=== PATIENT | male | born 1970 | race American Indian/Alaskan Native ===

== ENCOUNTER 2020-04-08 23:16 | Emergency (ER) | payer SELFPAY ==
[2020-04-08 23:31] VITALS: BP 132/87
--- NOTE | 2020-04-08 23:38 | Emergency Department Report ---
ED General Adult HPI - General Chief complaint: Pain General Stated complaint: ANAL PAIN/CONSTIPATION Source: patient Mode of arrival: Ambulatory Limitations: No Limitations - History of Present Illness Initial comments: Patient is a 49-year-old -[place] male with a history of SLE, bipolar disorder, anxiety and depression and PTSD who presents to the ED with complaint of acute onset persistent rectal pain due to persistent rectal hemorrhoids for the last 2 weeks. Patient states that the symptoms have worsened especially in the last 3 days with bowel movement. Patient states that he also noticed that the bowel was consistently heard and that he noticed some blood mixed with stool with worsening pain in his rectum. Patient denies fever, chills, abdominal pain, nausea, vomiting, chest pain, shortness of breath, cough, change in vision, testicular pain, hematuria, dysuria, dizziness or syncope. MD Complaint: Rectal pain, hemorrhoids -: Sudden, week(s) (2) Location: buttocks Radiation: non-radiation Severity scale (0 -10): 5 Quality: burning, aching, sharp Consistency: intermittent Improves with: none Worsens with: movement, other (bowel movement) Associated Symptoms: denies other symptoms. denies: confusion, chest pain, cough, diaphoresis, fever/chills, headaches, loss of appetite, malaise, nausea/vomiting, rash, seizure, shortness of breath, syncope, weakness, other Treatments Prior to Arrival: none - Related Data Previous Rx's Medication Instructions Recorded Last Taken Type Dibucaine 1% [Nupercainal] 1 applicatio LA TID PRN #1 tube 04/08/20 Unknown Rx Hydrocortisone [Anusol-Hc 2.5% TOP 30 gm RC Q8H PRN #1 cream..g. 04/08/20 Unknown Rx CREAM] Ibuprofen [Motrin] 600 mg PO Q8H PRN #24 tablet 04/08/20 Unknown Rx Allergies Allergy/AdvReac Type Severity Reaction Status Date / Time No Known Allergies Allergy Unverified 04/08/20 23:32 ED Review of Systems ROS: Stated complaint: ANAL PAIN/CONSTIPATION Other details as noted in HPI Constitutional: denies: chills, fever Eyes: denies: eye pain, eye discharge, vision change ENT: denies: ear pain, throat pain Respiratory: denies: cough, shortness of breath, wheezing Cardiovascular: denies: chest pain, palpitations Endocrine: no symptoms reported Gastrointestinal: other (rectal pain due to hemorrhoids). denies: abdominal pain, nausea, diarrhea Genitourinary: denies: urgency, dysuria Musculoskeletal: denies: back pain, joint swelling, arthralgia Skin: denies: rash, lesions Neurological: denies: headache, weakness, paresthesias Psychiatric: denies: anxiety, depression Hematological/Lymphatic: denies: easy bleeding, easy bruising ED Past Medical Hx - Past Medical History Previous Medical History?: Yes Hx Psychiatric Treatment: Yes (Anxiety, Bipolar, PTSD) Additional medical history: lupus - Social History Smoking Status: Current Every Day Smoker Substance Use Type: None - Medications Home Medications: Home Medications Medication Instructions Recorded Confirmed Last Taken Type Dibucaine 1% [Nupercainal] 1 applicatio LA TID PRN #1 tube 04/08/20 Unknown Rx Hydrocortisone [Anusol-Hc 2.5% TOP 30 gm RC Q8H PRN #1 cream..g. 04/08/20 Unknown Rx CREAM] Ibuprofen [Motrin] 600 mg PO Q8H PRN #24 tablet 04/08/20 Unknown Rx ED Physical Exam - General Limitations: No Limitations General appearance: alert, in no apparent distress - Head Head exam: Present: atraumatic, normocephalic, normal inspection - Eye Eye exam: Present: normal appearance, PERRL, EOMI Pupils: Present: normal accommodation - ENT ENT exam: Present: normal exam, normal orophraynx, mucous membranes moist, TM's normal bilaterally, normal external ear exam - Neck Neck exam: Present: normal inspection, full ROM - Respiratory Respiratory exam: Present: normal lung sounds bilaterally. Absent: respiratory distress, wheezes, rales, rhonchi, stridor, chest wall tenderness, accessory muscle use, decreased breath sounds, prolonged expiratory - Cardiovascular Cardiovascular Exam: Present: regular rate, normal rhythm, normal heart sounds. Absent: systolic murmur, diastolic murmur, rubs, gallop - GI/Abdominal GI/Abdominal exam: Present: soft, normal bowel sounds. 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 Ge present) - Extremities Exam Extremities exam: Present: normal inspection, full ROM, normal capillary refill - Back Exam Back exam: Present: normal inspection, full ROM. Absent: tenderness, CVA tenderness (R), CVA tenderness (L), muscle spasm, paraspinal tenderness, vertebral tenderness - Neurological Exam Neurological exam: Present: alert, oriented X3, CN II-XII intact, normal gait, reflexes normal - Psychiatric Psychiatric exam: Present: normal affect, normal mood - Skin Skin exam: Present: warm, dry, intact, normal color. Absent: rash ED Course Vital Signs 04/08/20 23:29 Temperature 97.6 F Pulse Rate 99 H Respiratory 16 Rate Blood Pressure 132/87 O2 Sat by Pulse 98 Oximetry ED Medical Decision Making - Medical Decision Making This is a 49-year-old -[place] male with a history of SLE, bipolar disorder, anxiety and depression and PTSD who presents to the ED with complaint of acute onset persistent rectal pain due to persistent rectal hemorrhoids for the last 2 weeks. Patient states that the symptoms have worsened especially in the last 3 days with bowel movement. Patient states that he also noticed that the bowel was consistently heard and that he noticed some blood mixed with stool with worsening pain in his rectum. In the ED, patient is alert and oriented x3 and is not in distress. Based on the physical exam findings, the patient will discharge home on medications and advised to follow-up with his primary care physician in 5 to 7 days for reevaluation or return to the ED immediately if symptoms get worse. - Differential Diagnosis Hemorrhoids; constipation; abscess; hernia Critical care attestation.: If time is entered above; I have spent that time in minutes in the direct care of this critically ill patient, excluding procedure time. ED Disposition Clinical Impression: External hemorrhoids, Anal or rectal pain Disposition: DC-01 TO HOME OR SELFCARE Is pt being admited?: No Does the pt Need Aspirin: No Condition: Stable Instructions: Hemorrhoids, [id number], Nonsurgical Procedures for Hemorrhoids Additional Instructions: Apply the medication to the affected area as advised, drink plenty of fluids and increase high-fiber in your diet to improve on constipation. Follow-up with your primary care physician in 5 to 7 days for reevaluation. Return to ED immediately if symptoms get worse. Prescriptions: Hydrocortisone [Anusol-Hc 2.5% TOP CREAM] 30 gm RC Q8H PRN #1 cream..g. PRN Reason: RECTAL HEMORRHOID Ibuprofen [Motrin] 600 mg PO Q8H PRN #24 tablet PRN Reason: Pain Dibucaine 1% [Nupercainal] 1 applicatio LA TID PRN #1 tube PRN Reason: Hemorrhoids Referrals: [facility] [Provider Group] - 3-5 Days Time of Disposition: 23:39 Print Language: SINHALA
== END 2020-04-08 23:49 | disposition home or self-care (01) ==
LOC: ED 23:16
DX: K64.4 Residual hemorrhoidal skin tags (principal); K62.89 Other specified diseases of anus and rectum; F17.200 Nicotine dependence, unspecified, uncomplicated; F31.9 Bipolar disorder, unspecified; F41.9 Anxiety disorder, unspecified; Z79.899 Other long term (current) drug therapy
CPT/HCPCS: 99281